=== PATIENT | female | born 1990 | race Caucasian/White ===

== ENCOUNTER 2020-10-15 15:29 | Inpatient (IN) | payer OTHER ==
[~2020-10-15] VITALS: Ht 175.3 cm; Wt 113.4 kg
[2020-10-15 16:35] LABS: HEMOGLOBIN 11.9 gm/dl (12.3-15.3); RED BLOOD COUNT 4.16 M/UL (4.00-5.10); WHITE BLOOD COUNT 16.1 K/UL (4.5-11.0)
[2020-10-15] MEDS ORDERED: SYNTHROID75 MCG PO (17:07)
[2020-10-15] MEDS ORDERED: WELLBUTRIN XL150 MG PO (17:08)
[2020-10-15] MEDS ORDERED: PRENATAL VITAM1 EAC6 PO (17:09)
[2020-10-16] MEDS ORDERED: HYDROCODON-ACE1 EAC4 PO (21:34)
[2020-10-16] MEDS ORDERED: IBUPROFEN600 MG PO (21:34)
[2020-10-16] MEDS ORDERED: DOCUSATE SODIU100 MG PO (21:34)
[2020-10-17 06:19] LABS: HEMOGLOBIN 11.1 gm/dl (12.3-15.3)
== END 2020-10-18 14:58 | disposition home or self-care (01) | DRG 788 ==
LOC: GENOP 15:29 → OB 15:56
PROVIDERS: ADMIT Obstetrics & Gynecology
PROC: 0U7C7ZZ Dilation of Cervix, Via Natural or Artificial Opening (ICD-10-PCS; 2020-10-15)
PROC: 3E033VJ Introduction of Other Hormone into Peripheral Vein, Percutaneous Approach (ICD-10-PCS; 2020-10-15)
PROC: 10D00Z1 Extraction of Products of Conception, Low, Open Approach (ICD-10-PCS; principal; 2020-10-16 22:10)
DX: O99.284 Endocrine, nutritional and metabolic diseases complicating childbirth (principal); E03.9 Hypothyroidism, unspecified; O99.344 Other mental disorders complicating childbirth; F32.9 Major depressive disorder, single episode, unspecified; Z3A.39 39 weeks gestation of pregnancy; Z37.0 Single live birth; Z20.822 Contact with and (suspected) exposure to COVID-19; O62.2 Other uterine inertia; O76 Abnormality in fetal heart rate and rhythm complicating labor and delivery
CPT/HCPCS: 36415; 81001; 82800; 85014; 85018; 85025; 90471; 90715; C9113; J0456; J0690; J2001; J2210; J2274; J2405; J2590; J2765; J2795; J3010; J7030; J7120; U0003